=== PATIENT | female | born 1945 | race Caucasian/White ===

== ENCOUNTER → 2016-10-14 | Outpatient (REF) | payer MEDICARE, BC ==
[2016-10-14 15:24] LABS: ALBUMIN 3.9 GM/DL (3.2-5.2); ALBUMIN/GLOBULIN RATIO 1.18 (1.00-1.93); BILIRUBIN,TOTAL 0.9 MG/DL (0.2-1.0); CALCIUM LEVEL 9.2 MG/DL (8.8-10.2); CREATININE FOR GFR 1.27 MG/DL (0.55-1.02); GLOMERULAR FILTRATION RATE 43.9 (>39); POTASSIUM SERUM 3.8 MEQ/L (3.5-5.1); TOTAL PROTEIN 7.2 GM/DL (6.4-8.2)
== END ==
LOC: M SFHCLACO 08:43
PROVIDERS: ATTEND Physician Assistant
DX: I10 Essential (primary) hypertension (principal); E78.2 Mixed hyperlipidemia; E11.9 Type 2 diabetes mellitus without complications; E55.9 Vitamin D deficiency, unspecified

== ENCOUNTER → 2017-02-19 | Outpatient (REF) | payer MEDICARE, BC ==
[2017-02-19 15:51] LABS: ALBUMIN 3.9 GM/DL (3.2-5.2); ALBUMIN/GLOBULIN RATIO 1.15 (1.00-1.93); CALCIUM LEVEL 9.1 MG/DL (8.8-10.2); CREATININE FOR GFR 1.11 MG/DL (0.55-1.02); GLOMERULAR FILTRATION RATE 51.2 (>39); POTASSIUM SERUM 4.3 MEQ/L (3.5-5.1); TOTAL PROTEIN 7.3 GM/DL (6.4-8.2)
== END ==
LOC: M SFHCLACO 09:02
PROVIDERS: ATTEND Physician Assistant
DX: I10 Essential (primary) hypertension (principal); E78.2 Mixed hyperlipidemia; E11.9 Type 2 diabetes mellitus without complications; E55.9 Vitamin D deficiency, unspecified; J44.9 Chronic obstructive pulmonary disease, unspecified; R60.9 Edema, unspecified; Z68.43 Body mass index [BMI] 50.0-59.9, adult

== ENCOUNTER 2017-11-15 06:25 | Inpatient (IN) | payer MEDICARE, BC ==
[2017-11-15 07:22] LABS: VENOUS BASE EXCESS 2.1 (-2.0-2.0); VENOUS HCO3 27.7 MEQ/L (23.0-27.0); VENOUS O2 SATURATION 82.5 % (60.0-80.0); VENOUS PARTIAL PRESSURE CO2 47.2 mmHg (38.0-50.0); VENOUS PARTIAL PRESSURE O2 49.8 mmHg (30.0-50.0); VENOUS PH 7.387 UNITS (7.330-7.430); VENOUS TOTAL CO2 29.2 MEQ/L (24.0-28.0)
[2017-11-15 07:24] LABS: BASO % 0.5 % (0.0-1.0); EOS # 0.1 10^3/uL (0.0-0.50); EOS % 1.5 % (0.0-3.0); HEMATOCRIT 39.3 % (36.0-47.0); HEMOGLOBIN 12.5 g/dl (12.0-16.0); IMMATURE GRANULOCYTE % 0.4 % (0-3.0); LYMPH # 1.3 10^3/uL (1.5-4.5); LYMPH % 16.3 % (24.0-44.0); MEAN CORPUSCULAR HEMOGLOBIN 31.5 pg (27.0-33.0); MEAN CORPUSCULAR HGB CONC 31.8 g/dl (32.0-36.5); MONO # 0.5 10^3/uL (0.0-0.8); MONO % 6.4 % (0.0-5.0); NEUTROPHILS # 5.9 10^3/uL (1.8-7.7); NEUTROPHILS % 74.9 % (36.0-66.0); PLATELET COUNT, AUTOMATED 263 10^3/uL (150-450); RED BLOOD COUNT 3.97 10^6/uL (4.00-5.40); RED CELL DISTRIBUTION WIDTH 14.8 % (11.5-14.5); WHITE BLOOD COUNT 7.9 10^3/uL (4.0-10.0)
[2017-11-15 07:37] LABS: INR 0.97
[2017-11-15] MEDS: methylPREDNISolone INJ 125 MG/2 ML VIAL (J2930) IV (07:37)
[2017-11-15 07:40] LABS: NT-PRO BNP 1162 PG/ML (<125)
[2017-11-15] MEDS: IPRATROPIUM 0.5MG/ALBUTEROL 2.5MG INH SOL UD 3ML (DUONEB)(J7620) NEB (07:40)
[2017-11-15 07:41] LABS: ANION GAP 7 MEQ/L (8-16); BLOOD UREA NITROGEN 16 MG/DL (7-18); CALCIUM LEVEL 8.7 MG/DL (8.8-10.2); CARBON DIOXIDE LEVEL 31 MEQ/L (21-32); CHLORIDE LEVEL 104 MEQ/L (98-107); CK-MB VALUE MASS < 1.0 NG/ML (<3.6); CPK CREATINE PHOSPHOKINASE 42 U/L (26-192); CREATININE FOR GFR 0.88 MG/DL (0.55-1.30); GLOMERULAR FILTRATION RATE > 60.0 (>39); GLUCOSE, FASTING 171 MG/DL (70-100); MB/CK RELATIVE INDEX 2.38 (< OR =4); POTASSIUM SERUM 4.5 MEQ/L (3.5-5.1); SODIUM LEVEL 142 MEQ/L (136-145); TROPONIN I < 0.02 NG/ML (< 0.10)
[2017-11-15] MEDS: ALBUTEROL SULFATE 2.5 MG/0.5 ML INH NEB SOLN INH (07:41)
[2017-11-15 07:46] LABS: ABG BASE EXCESS 2.6 (-2.0-2.0); ABG HCO3 26.9 MEQ/L (22.0-26.0); ABG O2 SATURATION 94.8 % (95.0-99.0); ABG PARTIAL PRESSURE CO2 40.5 mmHg (35.0-45.0); ABG PARTIAL PRESSURE O2 75.5 mmHg (75.0-100.0); ABG STANDARD HCO3 26.7 MEQ/L (22.0-26.0); ABG TOTAL CO2 28.1 MEQ/L (23.0-31.0)
[2017-11-15] MEDS ORDERED: GLUCAGON FOR INJ 1 MG VIAL (J1610) SC (08:15)
[2017-11-15] MEDS ORDERED: DEXTROSE 50% 50 ML SYRINGE IV (08:15)
[2017-11-15] MEDS ORDERED: ONDANSETRON 4MG/2ML VIAL (J2405) IV (08:15)
[2017-11-15] MEDS ORDERED: ONDANSETRON 4 MG TAB (S0181) PO (08:15)
[2017-11-15] MEDS ORDERED: GLUCOSE 4 GM CHEW TABLET PO (08:15)
[2017-11-15] MEDS: FUROSEMIDE 40 MG/4 ML VIAL (J1940) IV (08:16)
[2017-11-15 08:20] LABS: INFLUENZA A AMPLIFICATION NEGATIVE (NEGATIVE); INFLUENZA B AMPLIFICATION NEGATIVE (NEGATIVE)
[2017-11-15] MEDS: HumaLOG INSULIN (NovoLOG) PER UNIT SC ×5 (08:40→20:34)
[2017-11-15] MEDS ORDERED: INFLUENZA VIRUS VACCINE HIGH DOSE 0.5 ML SYRINGE (90662) IM ×2 (09:00→15:00)
[2017-11-15] MEDS: NYSTATIN 100,000 UNITS/GM TOPICAL PWD 15 GM TOP ×2 (09:00→20:31)
[2017-11-15] MEDS: DOCUSATE SODIUM 100 MG CAP PO ×2 (09:06→20:34)
[2017-11-15] MEDS: ENOXAPARIN 40 MG/0.4 ML SYRINGE (J1650) SC (09:06)
[2017-11-15 09:16] LABS: BEDSIDE GLUCOSE 144 MG/DL (83-110)
[2017-11-15 12:24] LABS: BEDSIDE GLUCOSE 178 MG/DL (83-110)
[2017-11-15 12:44] LABS: CK-MB VALUE MASS < 1.0 NG/ML (<3.6); CPK CREATINE PHOSPHOKINASE 37 U/L (26-192); TROPONIN I < 0.02 NG/ML (< 0.10)
[2017-11-15] MEDS ORDERED: PREVNAR 13 VACCINE SYRINGE (CPT CODE:90670) IM (15:00)
[2017-11-15] MEDS ORDERED: ALPRAZolam 0.25 MG TAB PO (16:15)
[2017-11-15] MEDS: ACETAMINOPHEN TAB 650MG DOSE (2X325MG) PO ×3 (16:18→21:02)
[2017-11-15] MEDS: FUROSEMIDE 100 MG/10 ML VIAL (J1940) IV (16:19)
[2017-11-15 17:30] LABS: BEDSIDE GLUCOSE 195 MG/DL (83-110)
[2017-11-15] MEDS: CitaloPRAM (CeleXA) 20 MG TAB PO (19:00)
[2017-11-15 20:12] LABS: BEDSIDE GLUCOSE 201 MG/DL (83-110)
[2017-11-15] MEDS: LATANOPROST 0.005% OPHTH SOLN 2.5 ML OU (20:31)
[2017-11-15] MEDS: MELOXICAM (MOBIC) 7.5 MG TAB PO (20:32)
[2017-11-15] MEDS: SIMVASTATIN 20 MG TAB PO (20:32)
[2017-11-15] MEDS: METOPROLOL TARTRATE 100 MG TAB PO (20:32)
[2017-11-15] MEDS: NIFEdipine 30 MG XL TAB PO (20:33)
[2017-11-15] MEDS: QUINAPRIL 20 MG TAB PO (20:34)
[2017-11-15 20:41] LABS: CPK CREATINE PHOSPHOKINASE 42 U/L (26-192); TROPONIN I < 0.02 NG/ML (< 0.10)
[2017-11-15 20:42] LABS: CK-MB VALUE MASS 1.1 NG/ML (<3.6); MB/CK RELATIVE INDEX 2.61 (< OR =4)
[2017-11-16 04:01] LABS: BASO % 0.1 % (0.0-1.0); HEMATOCRIT 34.9 % (36.0-47.0); IMMATURE GRANULOCYTE % 0.4 % (0-3.0); LYMPH # 1.7 10^3/uL (1.5-4.5); LYMPH % 23.1 % (24.0-44.0); MEAN CORPUSCULAR HEMOGLOBIN 30.1 pg (27.0-33.0); MEAN CORPUSCULAR HGB CONC 31.5 g/dl (32.0-36.5); MEAN CORPUSCULAR VOLUME 95.6 fl (80.0-96.0); MONO # 0.7 10^3/uL (0.0-0.8); MONO % 8.7 % (0.0-5.0); NEUTROPHILS # 5.1 10^3/uL (1.8-7.7); NEUTROPHILS % 67.7 % (36.0-66.0); PLATELET COUNT, AUTOMATED 254 10^3/uL (150-450); RED BLOOD COUNT 3.65 10^6/uL (4.00-5.40); RED CELL DISTRIBUTION WIDTH 14.4 % (11.5-14.5); WHITE BLOOD COUNT 7.5 10^3/uL (4.0-10.0)
[2017-11-16 04:24] LABS: ANION GAP 4 MEQ/L (8-16); BLOOD UREA NITROGEN 22 MG/DL (7-18); CALCIUM LEVEL 8.4 MG/DL (8.8-10.2); CARBON DIOXIDE LEVEL 34 MEQ/L (21-32); CHLORIDE LEVEL 103 MEQ/L (98-107); CK-MB VALUE MASS < 1.0 NG/ML (<3.6); CPK CREATINE PHOSPHOKINASE 27 U/L (26-192); CREATININE FOR GFR 0.93 MG/DL (0.55-1.30); GLOMERULAR FILTRATION RATE > 60.0 (>39); GLUCOSE, FASTING 128 MG/DL (70-100); MAGNESIUM LEVEL 2.2 MG/DL (1.8-2.4); POTASSIUM SERUM 3.9 MEQ/L (3.5-5.1); SODIUM LEVEL 141 MEQ/L (136-145); TROPONIN I < 0.02 NG/ML (< 0.10)
[2017-11-16] MEDS: QUINAPRIL 20 MG TAB PO ×2 (08:53→21:12)
[2017-11-16] MEDS: HumaLOG INSULIN (NovoLOG) PER UNIT SC ×4 (08:53→21:00)
[2017-11-16] MEDS: CitaloPRAM (CeleXA) 20 MG TAB PO (08:53)
[2017-11-16] MEDS: METOPROLOL TARTRATE 100 MG TAB PO ×2 (08:54→21:12)
[2017-11-16] MEDS: ENOXAPARIN 40 MG/0.4 ML SYRINGE (J1650) SC (08:54)
[2017-11-16] MEDS: DOCUSATE SODIUM 100 MG CAP PO ×4 (08:54→21:00)
[2017-11-16] MEDS: CLOPIDOGREL 75 MG TAB PO (08:54)
[2017-11-16] MEDS: FUROSEMIDE 100 MG/10 ML VIAL (J1940) IV ×2 (08:55→17:24)
[2017-11-16] MEDS: NYSTATIN 100,000 UNITS/GM TOPICAL PWD 15 GM TOP ×2 (08:56→21:14)
[2017-11-16] MEDS: PREVNAR 13 VACCINE SYRINGE (CPT CODE:90670) IM (09:53)
[2017-11-16 12:09] LABS: BEDSIDE GLUCOSE 125 MG/DL (83-110)
[2017-11-16] MEDS: INFLUENZA VIRUS VACCINE HIGH DOSE 0.5 ML SYRINGE (90662) IM (12:33)
[2017-11-16 17:34] LABS: BEDSIDE GLUCOSE 130 MG/DL (83-110)
[2017-11-16 20:45] LABS: BEDSIDE GLUCOSE 119 MG/DL (83-110)
[2017-11-16] MEDS: SIMVASTATIN 20 MG TAB PO (21:12)
[2017-11-16] MEDS: LATANOPROST 0.005% OPHTH SOLN 2.5 ML OU (21:13)
[2017-11-16] MEDS: NIFEdipine 30 MG XL TAB PO (21:13)
[2017-11-16] MEDS: MELOXICAM (MOBIC) 7.5 MG TAB PO (21:13)
[2017-11-17 05:32] LABS: BASO # 0.1 10^3/uL (0.0-0.2); BASO % 0.6 % (0.0-1.0); EOS # 0.2 10^3/uL (0.0-0.50); EOS % 2.3 % (0.0-3.0); HEMATOCRIT 38.1 % (36.0-47.0); HEMOGLOBIN 12.2 g/dl (12.0-16.0); IMMATURE GRANULOCYTE % 0.4 % (0-3.0); LYMPH # 2.1 10^3/uL (1.5-4.5); LYMPH % 27.5 % (24.0-44.0); MEAN CORPUSCULAR HEMOGLOBIN 31.5 pg (27.0-33.0); MEAN CORPUSCULAR VOLUME 98.4 fl (80.0-96.0); MONO # 0.6 10^3/uL (0.0-0.8); MONO % 8.1 % (0.0-5.0); NEUTROPHILS # 4.7 10^3/uL (1.8-7.7); NEUTROPHILS % 61.1 % (36.0-66.0); PLATELET COUNT, AUTOMATED 319 10^3/uL (150-450); RED BLOOD COUNT 3.87 10^6/uL (4.00-5.40); RED CELL DISTRIBUTION WIDTH 14.7 % (11.5-14.5); WHITE BLOOD COUNT 7.8 10^3/uL (4.0-10.0)
[2017-11-17 05:56] LABS: ANION GAP 7 MEQ/L (8-16); BLOOD UREA NITROGEN 28 MG/DL (7-18); CALCIUM LEVEL 8.6 MG/DL (8.8-10.2); CARBON DIOXIDE LEVEL 32 MEQ/L (21-32); CHLORIDE LEVEL 102 MEQ/L (98-107); CREATININE FOR GFR 1.04 MG/DL (0.55-1.30); GLOMERULAR FILTRATION RATE 55.1 (>39); GLUCOSE, FASTING 115 MG/DL (70-100); MAGNESIUM LEVEL 2.4 MG/DL (1.8-2.4); POTASSIUM SERUM 3.7 MEQ/L (3.5-5.1); SODIUM LEVEL 141 MEQ/L (136-145)
[2017-11-17] MEDS: CitaloPRAM (CeleXA) 20 MG TAB PO (08:44)
[2017-11-17] MEDS: QUINAPRIL 20 MG TAB PO ×2 (08:45→20:48)
[2017-11-17] MEDS: METOPROLOL TART 25 MG TABLET PO ×2 (08:45→20:47)
[2017-11-17] MEDS: FUROSEMIDE 100 MG/10 ML VIAL (J1940) IV ×2 (08:46→18:04)
[2017-11-17] MEDS: DOCUSATE SODIUM 100 MG CAP PO ×2 (08:46→20:50)
[2017-11-17] MEDS: CLOPIDOGREL 75 MG TAB PO (08:46)
[2017-11-17] MEDS: HumaLOG INSULIN (NovoLOG) PER UNIT SC ×4 (08:47→20:49)
[2017-11-17] MEDS: ENOXAPARIN 40 MG/0.4 ML SYRINGE (J1650) SC (08:47)
[2017-11-17] MEDS: NYSTATIN 100,000 UNITS/GM TOPICAL PWD 15 GM TOP ×2 (08:48→20:48)
[2017-11-17 11:38] LABS: BEDSIDE GLUCOSE 127 MG/DL (83-110)
[2017-11-17] MEDS: NIFEdipine 30 MG XL TAB PO (20:47)
[2017-11-17] MEDS: MELOXICAM (MOBIC) 7.5 MG TAB PO (20:48)
[2017-11-17] MEDS: LATANOPROST 0.005% OPHTH SOLN 2.5 ML OU (20:48)
[2017-11-17] MEDS: SIMVASTATIN 20 MG TAB PO (20:48)
[2017-11-18 06:25] LABS: BASO % 0.4 % (0.0-1.0); EOS # 0.1 10^3/uL (0.0-0.50); EOS % 2.5 % (0.0-3.0); HEMOGLOBIN 10.8 g/dl (12.0-16.0); IMMATURE GRANULOCYTE % 0.4 % (0-3.0); LYMPH # 1.7 10^3/uL (1.5-4.5); LYMPH % 30.9 % (24.0-44.0); MEAN CORPUSCULAR HEMOGLOBIN 31.1 pg (27.0-33.0); MEAN CORPUSCULAR HGB CONC 31.8 g/dl (32.0-36.5); MONO # 0.5 10^3/uL (0.0-0.8); MONO % 9.8 % (0.0-5.0); NEUTROPHILS # 3.1 10^3/uL (1.8-7.7); PLATELET COUNT, AUTOMATED 251 10^3/uL (150-450); RED BLOOD COUNT 3.47 10^6/uL (4.00-5.40); RED CELL DISTRIBUTION WIDTH 14.6 % (11.5-14.5); WHITE BLOOD COUNT 5.5 10^3/uL (4.0-10.0)
[2017-11-18 06:44] LABS: ANION GAP 5 MEQ/L (8-16); BLOOD UREA NITROGEN 26 MG/DL (7-18); CALCIUM LEVEL 8.3 MG/DL (8.8-10.2); CARBON DIOXIDE LEVEL 35 MEQ/L (21-32); CHLORIDE LEVEL 104 MEQ/L (98-107); CREATININE FOR GFR 0.89 MG/DL (0.55-1.30); GLOMERULAR FILTRATION RATE > 60.0 (>39); GLUCOSE, FASTING 118 MG/DL (70-100); MAGNESIUM LEVEL 2.5 MG/DL (1.8-2.4); POTASSIUM SERUM 3.6 MEQ/L (3.5-5.1); SODIUM LEVEL 144 MEQ/L (136-145)
[2017-11-18] MEDS: HumaLOG INSULIN (NovoLOG) PER UNIT SC ×4 (08:05→21:00)
[2017-11-18] MEDS: DOCUSATE SODIUM 100 MG CAP PO ×2 (09:00→21:39)
[2017-11-18 11:29] LABS: BEDSIDE GLUCOSE 161 MG/DL (83-110)
[2017-11-18 11:29] LABS: BEDSIDE GLUCOSE 103 MG/DL (83-110)
[2017-11-18] MEDS: ENOXAPARIN 40 MG/0.4 ML SYRINGE (J1650) SC (11:39)
[2017-11-18] MEDS: QUINAPRIL 20 MG TAB PO ×2 (11:39→21:38)
[2017-11-18] MEDS: CitaloPRAM (CeleXA) 20 MG TAB PO (11:40)
[2017-11-18] MEDS: CLOPIDOGREL 75 MG TAB PO (11:40)
[2017-11-18] MEDS: METOPROLOL TART 25 MG TABLET PO ×2 (11:40→21:37)
[2017-11-18] MEDS: NYSTATIN 100,000 UNITS/GM TOPICAL PWD 15 GM TOP ×2 (11:41→21:38)
[2017-11-18] MEDS: FUROSEMIDE 100 MG/10 ML VIAL (J1940) IV ×2 (11:41→17:22)
[2017-11-18] MEDS: NIFEdipine 30 MG XL TAB PO (21:37)
[2017-11-18] MEDS: SIMVASTATIN 20 MG TAB PO (21:37)
[2017-11-18] MEDS: MELOXICAM (MOBIC) 7.5 MG TAB PO (21:38)
[2017-11-18] MEDS: LATANOPROST 0.005% OPHTH SOLN 2.5 ML OU (21:38)
[2017-11-19] MEDS: CLOPIDOGREL 75 MG TAB PO (08:12)
[2017-11-19] MEDS: QUINAPRIL 20 MG TAB PO ×2 (08:12→21:35)
[2017-11-19] MEDS: CitaloPRAM (CeleXA) 20 MG TAB PO (08:12)
[2017-11-19] MEDS: METOPROLOL TART 25 MG TABLET PO ×2 (08:13→21:34)
[2017-11-19] MEDS: FUROSEMIDE 80 MG TAB PO (08:13)
[2017-11-19] MEDS: DOCUSATE SODIUM 100 MG CAP PO ×2 (08:14→21:00)
[2017-11-19] MEDS: HumaLOG INSULIN (NovoLOG) PER UNIT SC ×4 (08:14→21:00)
[2017-11-19] MEDS: ENOXAPARIN 40 MG/0.4 ML SYRINGE (J1650) SC (08:15)
[2017-11-19] MEDS: NYSTATIN 100,000 UNITS/GM TOPICAL PWD 15 GM TOP ×2 (08:15→21:35)
[2017-11-19 10:19] LABS: BASO % 0.3 % (0.0-1.0); EOS # 0.1 10^3/uL (0.0-0.50); EOS % 1.8 % (0.0-3.0); HEMATOCRIT 38.6 % (36.0-47.0); HEMOGLOBIN 12.4 g/dl (12.0-16.0); IMMATURE GRANULOCYTE % 0.3 % (0-3.0); LYMPH # 1.8 10^3/uL (1.5-4.5); LYMPH % 29.8 % (24.0-44.0); MEAN CORPUSCULAR HEMOGLOBIN 31.1 pg (27.0-33.0); MEAN CORPUSCULAR HGB CONC 32.1 g/dl (32.0-36.5); MEAN CORPUSCULAR VOLUME 96.7 fl (80.0-96.0); MONO # 0.5 10^3/uL (0.0-0.8); MONO % 8.2 % (0.0-5.0); NEUTROPHILS # 3.6 10^3/uL (1.8-7.7); NEUTROPHILS % 59.6 % (36.0-66.0); PLATELET COUNT, AUTOMATED 254 10^3/uL (150-450); RED BLOOD COUNT 3.99 10^6/uL (4.00-5.40); RED CELL DISTRIBUTION WIDTH 14.5 % (11.5-14.5)
[2017-11-19 10:40] LABS: POS COUNT POS FLAG
[2017-11-19 12:11] LABS: ANION GAP 5 MEQ/L (8-16); BLOOD UREA NITROGEN 24 MG/DL (7-18); CALCIUM LEVEL 8.4 MG/DL (8.8-10.2); CARBON DIOXIDE LEVEL 33 MEQ/L (21-32); CHLORIDE LEVEL 105 MEQ/L (98-107); CREATININE FOR GFR 0.88 MG/DL (0.55-1.30); GLOMERULAR FILTRATION RATE > 60.0 (>39); GLUCOSE, FASTING 142 MG/DL (70-100); MAGNESIUM LEVEL 2.5 MG/DL (1.8-2.4); POTASSIUM SERUM 3.5 MEQ/L (3.5-5.1); SODIUM LEVEL 143 MEQ/L (136-145)
[2017-11-19] MEDS: ACETAMINOPHEN TAB 650MG DOSE (2X325MG) PO (15:54)
[2017-11-19] MEDS: MELOXICAM (MOBIC) 7.5 MG TAB PO (21:35)
[2017-11-19] MEDS: LATANOPROST 0.005% OPHTH SOLN 2.5 ML OU (21:35)
[2017-11-19] MEDS: SIMVASTATIN 20 MG TAB PO (21:35)
[2017-11-19] MEDS: NIFEdipine 30 MG XL TAB PO (21:42)
[2017-11-20 07:01] LABS: BASO % 0.6 % (0.0-1.0); EOS # 0.1 10^3/uL (0.0-0.50); HEMATOCRIT 34.6 % (36.0-47.0); HEMOGLOBIN 11.2 g/dl (12.0-15.5); IMMATURE GRANULOCYTE % 0.4 % (0-3.0); LYMPH # 1.6 10^3/uL (1.5-4.5); MEAN CORPUSCULAR HEMOGLOBIN 31.2 pg (27.0-33.0); MEAN CORPUSCULAR HGB CONC 32.4 g/dl (32.0-36.5); MEAN CORPUSCULAR VOLUME 96.4 fl (80.0-96.0); MONO # 0.5 10^3/uL (0.0-0.8); MONO % 9.4 % (0.0-5.0); NEUTROPHILS # 2.8 10^3/uL (1.8-7.7); NEUTROPHILS % 55.6 % (36.0-66.0); PLATELET COUNT, AUTOMATED 249 10^3/uL (150-450); RED BLOOD COUNT 3.59 10^6/uL (4.00-5.40); RED CELL DISTRIBUTION WIDTH 14.4 % (11.5-14.5); WHITE BLOOD COUNT 5.1 10^3/uL (4.0-10.0)
[2017-11-20 07:19] LABS: ANION GAP 6 MEQ/L (8-16); BLOOD UREA NITROGEN 22 MG/DL (7-18); CALCIUM LEVEL 8.5 MG/DL (8.8-10.2); CARBON DIOXIDE LEVEL 32 MEQ/L (21-32); CHLORIDE LEVEL 106 MEQ/L (98-107); CREATININE FOR GFR 0.81 MG/DL (0.55-1.30); GLOMERULAR FILTRATION RATE > 60.0 (>39); GLUCOSE, FASTING 122 MG/DL (70-100); MAGNESIUM LEVEL 2.5 MG/DL (1.8-2.4); POTASSIUM SERUM 3.5 MEQ/L (3.5-5.1); SODIUM LEVEL 144 MEQ/L (136-145)
[2017-11-20] MEDS: ENOXAPARIN 40 MG/0.4 ML SYRINGE (J1650) SC (08:19)
[2017-11-20] MEDS: QUINAPRIL 20 MG TAB PO (08:19)
[2017-11-20] MEDS: HumaLOG INSULIN (NovoLOG) PER UNIT SC ×2 (08:19→12:00)
[2017-11-20] MEDS: CitaloPRAM (CeleXA) 20 MG TAB PO (08:20)
[2017-11-20] MEDS: FUROSEMIDE 80 MG TAB PO (08:20)
[2017-11-20] MEDS: METOPROLOL TART 25 MG TABLET PO (08:20)
[2017-11-20] MEDS: CLOPIDOGREL 75 MG TAB PO (08:20)
[2017-11-20] MEDS: NYSTATIN 100,000 UNITS/GM TOPICAL PWD 15 GM TOP (08:21)
[2017-11-20] MEDS: DOCUSATE SODIUM 100 MG CAP PO (08:21)
[2017-11-20 22:00] LABS: BEDSIDE GLUCOSE 110 MG/DL (83-110)
[2017-11-20 22:00] LABS: BEDSIDE GLUCOSE 129 MG/DL (83-110)
[2017-11-20 22:00] LABS: BEDSIDE GLUCOSE 148 MG/DL (83-110)
[2017-11-20 22:00] LABS: BEDSIDE GLUCOSE 125 MG/DL (83-110)
[2017-11-20 22:01] LABS: BEDSIDE GLUCOSE 130 MG/DL (83-110)
[2017-11-20 22:01] LABS: BEDSIDE GLUCOSE 134 MG/DL (83-110)
[2017-11-20 22:01] LABS: BEDSIDE GLUCOSE 122 MG/DL (83-110)
== END 2017-11-20 12:55 | disposition home or self-care (01) | DRG 292 ==
LOC: M MS5PR 11-17 16:17 → M ED 06:25 → M ED INP 08:07 → M ICU 09:46 → M PCU 23:12
DX: I11.0 Hypertensive heart disease with heart failure (principal); Z68.42 Body mass index [BMI] 45.0-49.9, adult; I50.33 Acute on chronic diastolic (congestive) heart failure; E66.01 Morbid (severe) obesity due to excess calories; Z66 Do not resuscitate; E78.5 Hyperlipidemia, unspecified; R19.7 Diarrhea, unspecified; E11.9 Type 2 diabetes mellitus without complications; F32.9 Major depressive disorder, single episode, unspecified; F41.9 Anxiety disorder, unspecified; Z79.899 Other long term (current) drug therapy; Z79.82 Long term (current) use of aspirin; Z88.6 Allergy status to analgesic agent; Z88.0 Allergy status to penicillin; Z88.1 Allergy status to other antibiotic agents; K57.30 Diverticulosis of large intestine without perforation or abscess without bleeding; Z87.891 Personal history of nicotine dependence

== ENCOUNTER → 2018-02-09 | Outpatient (REF) | payer MEDICARE, BC ==
[2018-02-09 15:14] LABS: TOTAL 25(OH) VITAMIN D 34.1 NG/ML (30.0-100.0)
[2018-02-09 16:05] LABS: ALBUMIN 4.1 GM/DL (3.2-5.2); ALBUMIN/GLOBULIN RATIO 1.11 (1.00-1.93); ALKALINE PHOSPHATASE 97 U/L (45-117); ALT/SGPT 22 U/L (12-78); ANION GAP 15 MEQ/L (8-16); AST/SGOT 9 U/L (7-37); BILIRUBIN,TOTAL 0.9 MG/DL (0.2-1.0); BLOOD UREA NITROGEN 31 MG/DL (7-18); CALCIUM LEVEL 9.3 MG/DL (8.8-10.2); CARBON DIOXIDE LEVEL 22 MEQ/L (21-32); CHLORIDE LEVEL 102 MEQ/L (98-107); CHOLESTEROL LEVEL 147 MG/DL (<200); CHOLESTEROL RISK RATIO 2.722 (<5); CREATININE FOR GFR 1.29 MG/DL (0.55-1.30); GLOMERULAR FILTRATION RATE 42.9 (>39); GLUCOSE, FASTING 149 MG/DL (70-100); HDL CHOLESTEROL 54 MG/DL (>40); LDL CHOLESTEROL 24.4 MG/DL (<100); NON-HDL-C 93 MG/DL; POTASSIUM SERUM 4.5 MEQ/L (3.5-5.1); SODIUM LEVEL 139 MEQ/L (136-145); TOTAL PROTEIN 7.8 GM/DL (6.4-8.2); TRIGLYCERIDES LEVEL 343 MG/DL (<150)
[2018-02-09 19:03] LABS: ESTIMATED AVERAGE GLUCOSE 126 MG/DL (60-110)
== END ==
LOC: M SFHCLACO 08:51
DX: E78.2 Mixed hyperlipidemia (principal); E11.9 Type 2 diabetes mellitus without complications; I10 Essential (primary) hypertension; E55.9 Vitamin D deficiency, unspecified
CPT/HCPCS: 80053

== ENCOUNTER → 2019-05-09 | Outpatient (REF) | payer MEDICARE, BC ==
[~2019-05-09] MED LIST: ACET1TAB55 PO; CELE20TA PO; CLOP75TA2 PO; FURO80TA2 PO; LOVA20TA2 PO; MELO15TA28 PO; METF500T13 PO; METO100T5 PO; METO1TAB87 PO; NIFE90TA3 PO; QUIN1TAB4 PO; TRAV04OPD OU; VITA50005 PO; XANA0.25 PO
[2019-05-09 19:12] LABS: PERCENT SATURATION 23.7 % (13.2-45.0)
== END ==
LOC: M LAB REF 18:23
PROVIDERS: ATTEND Internal Medicine Nephrology
DX: D64.9 Anemia, unspecified (principal)

== ENCOUNTER → 2019-05-20 | Outpatient (CLI) | payer MEDICARE, BC ==
--- NOTE | 2019-05-20 13:48 | REP ---
RENAL ULTRASOUND: Real-time sonographic evaluation of the kidneys performed. Kidneys are normal in size and echotexture, right kidney measuring 9.6 x 4.9 x 4.0 cm and left kidney 9.7 x 5.8 x 5.6 cm. There is no hydronephrosis bilaterally. No renal mass or stone visualized. IMPRESSION: Negative renal ultrasound. Electronically Signed by Leonel Fitch MD 05/20/2019 04:58 P
--- NOTE | 2019-05-20 13:50 | REP ---
URINARY BLADDER WITH ULTRASOUND: Real-time sonographic evaluation of the urinary bladder performed. The bladder measures 8.4 x 8.8 x 7.9 cm for a total volume of 31 mL. Post-void residual is 33 mL which is 9% of the original volume. No bladder mass or calculus is seen. There are bilateral ureteral jets in the urinary bladder with Doppler color evaluation. IMPRESSION: No bladder mass or calculus. Bilateral ureteral jets visualized. Postvoid residual 9%. Electronically Signed by Leonel Fitch MD 05/20/2019 04:58 P
== END ==
LOC: M RAD 11:24
PROVIDERS: ATTEND Internal Medicine Nephrology
DX: I12.9 Hypertensive chronic kidney disease with stage 1 through stage 4 chronic kidney disease, or unspecified chronic kidney disease (principal); N18.3 Chronic kidney disease, stage 3 (moderate); E11.9 Type 2 diabetes mellitus without complications

== ENCOUNTER → 2021-04-23 | Outpatient (REF) | payer MEDICARE, BC ==
[~2021-04-23] MED LIST changes: +NIFE1TAB50 PO; -NIFE90TA3 PO
[2021-04-23 17:45] LABS: MAGNESIUM LEVEL 1.7 MG/DL (1.8-2.4)
[2021-04-23 18:01] LABS: FOLATE 4.8 NG/ML
== END ==
LOC: M LAB REF 17:10
PROVIDERS: ATTEND Nurse Practitioner Family
DX: D64.9 Anemia, unspecified (principal); E83.42 Hypomagnesemia

== ENCOUNTER 2021-09-08 16:28 | Inpatient (IN) | payer MEDICARE, BC ==
[~2021-09-08] VITALS: Ht 154.9 cm; Wt 83.5 kg
[2021-09-08] MEDS ORDERED: LORazepam 2 MG/ML VIAL IV STA ×3 (17:09→18:09)
[2021-09-08 17:13] LABS: BASO % 0.2 % (0.0-1.0); HEMATOCRIT 39.3 % (36.0-47.0); HEMOGLOBIN 12.6 g/dl (12.0-15.5); LYMPH # 1.3 10^3/uL (1.5-5.0); LYMPH % 10.4 % (24.0-44.0); MEAN CORPUSCULAR HEMOGLOBIN 31.5 pg (27.0-33.0); MEAN CORPUSCULAR HGB CONC 32.1 g/dl (32.0-36.5); MEAN CORPUSCULAR VOLUME 98.3 fl (80.0-96.0); MONO # 0.7 10^3/uL (0.0-0.8); MONO % 5.3 % (2.0-8.0); NEUTROPHILS # 10.7 10^3/uL (1.5-8.5); NEUTROPHILS % 83.8 % (36.0-66.0); PLATELET COUNT, AUTOMATED 266 10^3/uL (150-450); WHITE BLOOD COUNT 12.8 10^3/uL (4.0-10.0)
[2021-09-08] MEDS ORDERED: ACETAMINOPHEN 650 MG SUPP PR ONE (17:20)
[2021-09-08] MEDS ORDERED: LORazepam 2 MG/ML VIAL As Ordered ONE ×3 (17:27→18:12)
[2021-09-08 17:47] LABS: ACETAMINOPHEN LEVEL < 2.0 UG/ML (10.0-30.0); ALBUMIN 3.3 GM/DL (3.2-5.2); ALT/SGPT 12 U/L (12-78); BILIRUBIN,DIRECT 0.2 MG/DL (0.0-0.2); BLOOD UREA NITROGEN 20 MG/DL (7-18); CALCIUM LEVEL 8.9 MG/DL (8.8-10.2); CARBON DIOXIDE LEVEL 33 MEQ/L (21-32); CHLORIDE LEVEL 104 MEQ/L (98-107); CREATININE FOR GFR 1.25 MG/DL (0.55-1.30); ETHYL ALCOHOL (ETHANOL) < 0.003 % (0.000-0.010); GLOMERULAR FILTRATION RATE 44.1 (>39); GLUCOSE, FASTING 155 MG/DL (70-100); POTASSIUM SERUM 3.4 MEQ/L (3.5-5.1); SALICYLATE LEVEL < 1.7 MG/DL (5.0-30.0); SODIUM LEVEL 144 MEQ/L (136-145); THYROID STIMULATING HORMONE 0.273 uIU/ML (0.358-3.740); TOTAL PROTEIN 6.8 GM/DL (6.4-8.2)
[2021-09-08 17:59] LABS: AMPHETAMINES LEVEL URINE NEGATIVE (NEGATIVE); BARBITURATES URINE NEGATIVE (NEGATIVE); BENZODIAZEPINES URINE POSITIVE (NEGATIVE); CANNABINOIDS URINE NEGATIVE (NEGATIVE); COCAINE METABOLITE URINE NEGATIVE (NEGATIVE); METHADONE URINE NEGATIVE (NEGATIVE); OPIATES URINE NEGATIVE (NEGATIVE); PHENCYCLIDINE URINE NEGATIVE (NEGATIVE)
[2021-09-08] MEDS ORDERED: LevoFLOXacin IV 750 MG in IV 1 EA IV ONE (18:35)
[2021-09-08 19:02] LABS: CK-MB VALUE MASS 1.7 NG/ML (<3.6); MB/CK RELATIVE INDEX 0.65 (< OR =4)
[2021-09-08] MEDS ORDERED: METO50TA7 PO (19:05)
[2021-09-08] MEDS ORDERED: DULO1CAP4 PO (19:05)
[2021-09-08] MEDS ORDERED: ERGO500029 PO (19:05)
[2021-09-08] MEDS ORDERED: HOME MED LIST COMPLETE! XX SCH (19:10)
[2021-09-08] MEDS ORDERED: ASPIRIN 300 MG SUPP PR ONE (19:45)
[2021-09-08] MEDS ORDERED: NS 1,000 ML IV ONE (19:45)
[2021-09-08] MEDS: ATORVASTATIN 20 MG TAB PO SCH (21:00)
[2021-09-08] MEDS ORDERED: MOM 30ML SUSPENSION UDC PO PRN (22:35)
[2021-09-08] MEDS ORDERED: ACETAMINOPHEN 650 MG SUPP PR PRN (22:35)
[2021-09-08] MEDS ORDERED: GLUCOSE 4GM CHEW TABLET PO PRN (23:05)
[2021-09-08] MEDS ORDERED: GLUCAGON INJ 1MG VIAL SC PRN (23:05)
[2021-09-08] MEDS ORDERED: DEXTROSE 50% 50 ML SYRINGE IV PRN (23:05)
[2021-09-09] MEDS ORDERED: VANCOMYCIN HCL 1,000 MG, VIAL MATE ADAPTER 1 EACH in NS 250 ML IV ONE ×3
[2021-09-09] MEDS: HumaLOG INSULIN (NovoLOG) PER UNIT SC SCH ×5 (00:07→23:09)
[2021-09-09] MEDS ORDERED: VANCOMYCIN HCL 500 MG in D5W MINI-BAG PLUS 100 ML IV ONE (01:00)
[2021-09-09] MEDS ORDERED: OLANZapine INTRAMUSCULAR 10MG VIAL IM ONE (02:00)
[2021-09-09 02:10] VITALS: BP 160/67
[2021-09-09] MEDS: NS 1,000 ML IV SCH ×2 (03:07→23:10)
[2021-09-09 04:00] VITALS: BP 110/53
[2021-09-09 05:52] LABS: HEMATOCRIT 34.1 % (36.0-47.0); HEMOGLOBIN 10.8 g/dl (12.0-15.5); MEAN CORPUSCULAR HEMOGLOBIN 31.9 pg (27.0-33.0); MEAN CORPUSCULAR HGB CONC 31.7 g/dl (32.0-36.5); MEAN CORPUSCULAR VOLUME 100.6 fl (80.0-96.0); PLATELET COUNT, AUTOMATED 211 10^3/uL (150-450); RED BLOOD COUNT 3.39 10^6/uL (4.00-5.40)
[2021-09-09] MEDS: HEPARIN SOD (PORCINE) 5000UNITS/ML 1ML VIAL/SYRINGE SC SCH ×3 (06:13→20:39)
[2021-09-09 06:32] LABS: ALBUMIN 2.6 GM/DL (3.2-5.2); BILIRUBIN,TOTAL 1.2 MG/DL (0.2-1.0); CALCIUM LEVEL 7.9 MG/DL (8.8-10.2); CREATININE FOR GFR 1.04 MG/DL (0.55-1.30); GLOMERULAR FILTRATION RATE 54.6 (>39); MAGNESIUM LEVEL 1.5 MG/DL (1.8-2.4); POTASSIUM SERUM 2.8 MEQ/L (3.5-5.1); TOTAL PROTEIN 5.6 GM/DL (6.4-8.2)
[2021-09-09] MEDS ORDERED: MAG SULF 1GM/100ML (MAG RUN) 1 GM in IV 1 EA IV ONE (07:00)
[2021-09-09 07:57] VITALS: BP 135/65
[2021-09-09] MEDS ORDERED: POTASSIUM CHLORIDE 10MEQ SR TABLET PO ONE (08:00)
[2021-09-09] MEDS: DOCUSATE SODIUM 100MG CAPSULE PO SCH ×2 (09:00→20:20)
[2021-09-09] MEDS: METOPROLOL TART 50 MG TAB PO SCH ×2 (09:00→20:21)
[2021-09-09] MEDS: CLOPIDOGREL 75 MG TAB PO SCH (09:00)
[2021-09-09] MEDS: KCL 10MEQ/100ML SWI (KRUN) 10 MEQ in IV 1 EA IV SCH ×4 (09:33→15:20)
[2021-09-09 12:53] VITALS: BP 128/60
[2021-09-09] MEDS ORDERED: KCL 10MEQ/100ML SWI (KRUN) 10 MEQ in IV 1 EA IV ONE (15:15)
[2021-09-09] MEDS: VANCOMYCIN HCL 1,000 MG, VIAL MATE ADAPTER 1 EACH in NS 250 ML IV SCH (16:34)
[2021-09-09 17:04] VITALS: BP 135/83
[2021-09-09 17:29] LABS: CALCIUM LEVEL 8.5 MG/DL (8.8-10.2); CREATININE FOR GFR 1.07 MG/DL (0.55-1.30); GLOMERULAR FILTRATION RATE 52.8 (>39); MAGNESIUM LEVEL 2.2 MG/DL (1.8-2.4); PHOSPHORUS LEVEL 2.4 MG/DL (2.5-4.9); POTASSIUM SERUM 3.8 MEQ/L (3.5-5.1)
[2021-09-09] MEDS ORDERED: K-PHOS ORIGINAL (POT.ACID PHOSPHATE) 500MG TAB PO ONE (18:05)
[2021-09-09 20:00] VITALS: BP 141/62
[2021-09-09] MEDS: ATORVASTATIN 20 MG TAB PO SCH (20:20)
[2021-09-09] MEDS ORDERED: VANCOMYCIN HCL 1,000 MG, VIAL MATE ADAPTER 1 EACH in NS 250 ML IV SCH (21:00)
[2021-09-10] VITALS (8 sets, daily range): BP systolic 113–153; BP diastolic 53–67
[2021-09-10 05:07] LABS: BASO % 0.5 % (0.0-1.0); EOS # 0.3 10^3/uL (0.0-0.5); EOS % 3.8 % (0.0-3.0); HEMATOCRIT 33.8 % (36.0-47.0); HEMOGLOBIN 10.6 g/dl (12.0-15.5); LYMPH # 1.8 10^3/uL (1.5-5.0); LYMPH % 27.6 % (24.0-44.0); MEAN CORPUSCULAR HEMOGLOBIN 31.5 pg (27.0-33.0); MEAN CORPUSCULAR HGB CONC 31.4 g/dl (32.0-36.5); MEAN CORPUSCULAR VOLUME 100.6 fl (80.0-96.0); MONO # 0.5 10^3/uL (0.0-0.8); MONO % 6.8 % (2.0-8.0); PLATELET COUNT, AUTOMATED 179 10^3/uL (150-450); RED BLOOD COUNT 3.36 10^6/uL (4.00-5.40); WHITE BLOOD COUNT 6.6 10^3/uL (4.0-10.0)
[2021-09-10] MEDS: HumaLOG INSULIN (NovoLOG) PER UNIT SC SCH ×4 (05:19→20:38)
[2021-09-10] MEDS: HEPARIN SOD (PORCINE) 5000UNITS/ML 1ML VIAL/SYRINGE SC SCH ×3 (05:32→20:42)
[2021-09-10 05:37] LABS: ALBUMIN 2.5 GM/DL (3.2-5.2); BILIRUBIN,TOTAL 0.9 MG/DL (0.2-1.0); CALCIUM LEVEL 8.1 MG/DL (8.8-10.2); CREATININE FOR GFR 1.01 MG/DL (0.55-1.30); GLOMERULAR FILTRATION RATE 56.4 (>39); PHOSPHORUS LEVEL 2.8 MG/DL (2.5-4.9); POTASSIUM SERUM 3.1 MEQ/L (3.5-5.1); TOTAL PROTEIN 5.6 GM/DL (6.4-8.2)
[2021-09-10] MEDS: DOCUSATE SODIUM 100MG CAPSULE PO SCH ×2 (09:18→20:42)
[2021-09-10] MEDS: CLOPIDOGREL 75 MG TAB PO SCH (09:19)
[2021-09-10] MEDS: METOPROLOL TART 50 MG TAB PO SCH ×2 (09:19→20:43)
[2021-09-10] MEDS ORDERED: POTASSIUM CHLORIDE 10MEQ SR TABLET PO ONE (10:30)
[2021-09-10] MEDS: VANCOMYCIN HCL 1,000 MG, VIAL MATE ADAPTER 1 EACH in NS 250 ML IV SCH (14:59)
[2021-09-10 16:08] LABS: MYCOPLASMA PNEUMONIAE IgG 461 U/mL (0-99); MYCOPLASMA PNEUMONIAE IgM <770 U/mL (0-769)
[2021-09-10] MEDS ORDERED: LevoFLOXacin IV 750 MG in IV 1 EA IV SCH (18:00)
[2021-09-10] MEDS: ATORVASTATIN 20 MG TAB PO SCH (20:43)
[2021-09-10] MEDS ORDERED: OLANZapine INTRAMUSCULAR 10MG VIAL IM ONE (22:05)
[2021-09-10] MEDS ORDERED: KETOROLAC 30 MG/ML 1ML VIAL IV ONE (23:30)
[2021-09-10] MEDS ORDERED: LORazepam 2 MG/ML VIAL IV ONE (23:30)
[2021-09-11 04:00] VITALS: BP 152/62
[2021-09-11] MEDS: HEPARIN SOD (PORCINE) 5000UNITS/ML 1ML VIAL/SYRINGE SC SCH ×3 (05:32→21:46)
[2021-09-11] MEDS: HumaLOG INSULIN (NovoLOG) PER UNIT SC SCH ×4 (07:30→20:43)
[2021-09-11 08:00] VITALS: BP 182/84
[2021-09-11] MEDS ORDERED: OLANZapine INTRAMUSCULAR 10MG VIAL IM ONE ×2 (08:00→08:30)
[2021-09-11] MEDS ORDERED: HALOPERIDOL 5MG/ML VIAL (J1630 PER 1) IM PRN (09:55)
[2021-09-11] MEDS ORDERED: HALOPERIDOL 5MG/ML VIAL (J1630 PER 1) IV ONE (09:55)
[2021-09-11] MEDS ORDERED: diphenhydrAMINE 50MG/ML VIAL (J1200) IV PRN (11:15)
[2021-09-11 12:00] VITALS: BP 131/66
[2021-09-11] MEDS ORDERED: POTASSIUM CHLORIDE 10MEQ SR TABLET PO ONE (13:00)
[2021-09-11] MEDS ORDERED: lisinopriL 40 MG TAB PO ONE (13:00)
[2021-09-11] MEDS: DOCUSATE SODIUM 100MG CAPSULE PO SCH ×2 (15:12→20:42)
[2021-09-11] MEDS: CEFDINIR 300 MG CAP (OMNICEF) PO SCH ×2 (15:13→20:43)
[2021-09-11] MEDS: METOPROLOL TART 50 MG TAB PO SCH ×2 (15:13→20:43)
[2021-09-11] MEDS: CLOPIDOGREL 75 MG TAB PO SCH (17:59)
[2021-09-11] MEDS: ACETAMINOPHEN TAB 650MG DOSE (2X325MG) PO PRN (18:00)
[2021-09-11 19:06] VITALS: BP 130/65
[2021-09-11] MEDS: ATORVASTATIN 20 MG TAB PO SCH (20:44)
[2021-09-11] MEDS ORDERED: OLANZapine ORAL DISINTEGRATING TAB 5MG PO SCH (21:00)
[2021-09-12 04:00] VITALS: BP 141/73
[2021-09-12] MEDS: HEPARIN SOD (PORCINE) 5000UNITS/ML 1ML VIAL/SYRINGE SC SCH ×3 (05:08→21:44)
[2021-09-12 05:34] LABS: HEMATOCRIT 34.5 % (36.0-47.0); HEMOGLOBIN 10.8 g/dl (12.0-15.5); MEAN CORPUSCULAR HEMOGLOBIN 31.9 pg (27.0-33.0); MEAN CORPUSCULAR HGB CONC 31.3 g/dl (32.0-36.5); MEAN CORPUSCULAR VOLUME 101.8 fl (80.0-96.0); PLATELET COUNT, AUTOMATED 213 10^3/uL (150-450); RED BLOOD COUNT 3.39 10^6/uL (4.00-5.40); WHITE BLOOD COUNT 5.9 10^3/uL (4.0-10.0)
[2021-09-12 05:50] LABS: CALCIUM LEVEL 8.2 MG/DL (8.8-10.2); CREATININE FOR GFR 1.1 MG/DL (0.55-1.30); GLOMERULAR FILTRATION RATE 51.1 (>39); MAGNESIUM LEVEL 1.8 MG/DL (1.8-2.4); PHOSPHORUS LEVEL 2.8 MG/DL (2.5-4.9); POTASSIUM SERUM 4.6 MEQ/L (3.5-5.1)
[2021-09-12] MEDS: HumaLOG INSULIN (NovoLOG) PER UNIT SC SCH ×4 (07:11→20:40)
[2021-09-12 07:34] VITALS: BP 134/75
[2021-09-12] MEDS: CLOPIDOGREL 75 MG TAB PO SCH (08:53)
[2021-09-12] MEDS: CEFDINIR 300 MG CAP (OMNICEF) PO SCH (08:54)
[2021-09-12] MEDS: DOCUSATE SODIUM 100MG CAPSULE PO SCH ×2 (08:54→19:59)
[2021-09-12] MEDS: METOPROLOL TART 50 MG TAB PO SCH ×2 (08:54→20:02)
[2021-09-12] MEDS ORDERED: lisinopriL 40 MG TAB PO SCH (09:00)
[2021-09-12 12:03] VITALS: BP 149/65
[2021-09-12] MEDS: LevoFLOXacin 750 MG TABLET PO SCH (17:32)
[2021-09-12 19:57] VITALS: BP 158/96
[2021-09-12] MEDS: ATORVASTATIN 20 MG TAB PO SCH (19:59)
[2021-09-12] MEDS ORDERED: OLANZapine ORAL DISINTEGRATING TAB 5MG PO SCH (21:00)
[2021-09-12] MEDS ORDERED: DOXYCYCLINE HYCLATE 100MG TABLET PO SCH (21:00)
[2021-09-12] MEDS ORDERED: HALOPERIDOL 5MG/ML VIAL (J1630 PER 1) IM ONE (21:30)
[2021-09-12] MEDS ORDERED: OLANZapine INTRAMUSCULAR 10MG VIAL IM ONE (22:55)
[2021-09-13] MEDS ORDERED: LORazepam 2 MG/ML VIAL IV ONE (01:00)
[2021-09-13 04:00] VITALS: BP 130/80
[2021-09-13 05:43] LABS: HEMATOCRIT 36.2 % (36.0-47.0); HEMOGLOBIN 11.6 g/dl (12.0-15.5); MEAN CORPUSCULAR VOLUME 99.7 fl (80.0-96.0); PLATELET COUNT, AUTOMATED 223 10^3/uL (150-450); RED BLOOD COUNT 3.63 10^6/uL (4.00-5.40); WHITE BLOOD COUNT 7.5 10^3/uL (4.0-10.0)
[2021-09-13] MEDS: HEPARIN SOD (PORCINE) 5000UNITS/ML 1ML VIAL/SYRINGE SC SCH ×3 (06:00→20:51)
[2021-09-13 06:29] LABS: CALCIUM LEVEL 8.6 MG/DL (8.8-10.2); CREATININE FOR GFR 1.1 MG/DL (0.55-1.30); GLOMERULAR FILTRATION RATE 51.1 (>39); MAGNESIUM LEVEL 1.8 MG/DL (1.8-2.4); PHOSPHORUS LEVEL 3.2 MG/DL (2.5-4.9); POTASSIUM SERUM 5.1 MEQ/L (3.5-5.1)
[2021-09-13] MEDS: HumaLOG INSULIN (NovoLOG) PER UNIT SC SCH ×4 (07:30→20:50)
[2021-09-13 11:39] VITALS: BP 158/60
[2021-09-13] MEDS: CLOPIDOGREL 75 MG TAB PO SCH (11:41)
[2021-09-13] MEDS: DOCUSATE SODIUM 100MG CAPSULE PO SCH ×2 (11:41→20:48)
[2021-09-13] MEDS: METOPROLOL TART 50 MG TAB PO SCH ×2 (11:41→20:49)
[2021-09-13] MEDS ORDERED: D5W 1,000 ML IV SCH (13:00)
[2021-09-13] MEDS: lisinopriL 5 MG TAB PO SCH (15:43)
[2021-09-13] MEDS ORDERED: PILL CUTTER 1 EACH XX PRN (18:55)
[2021-09-13] MEDS: ATORVASTATIN 20 MG TAB PO SCH (20:48)
[2021-09-13] MEDS: SERTRALINE HCL 25 MG TABLET PO SCH (20:48)
[2021-09-13] MEDS: ACETAMINOPHEN TAB 650MG DOSE (2X325MG) PO PRN (20:49)
[2021-09-13] MEDS: OLANZapine ORAL DISINTEGRATING TAB 5MG PO SCH (20:54)
[2021-09-13] MEDS ORDERED: OLANZapine ORAL DISINTEGRATING TAB 5MG PO SCH (21:00)
[2021-09-14] MEDS: HEPARIN SOD (PORCINE) 5000UNITS/ML 1ML VIAL/SYRINGE SC SCH ×3 (05:28→20:26)
[2021-09-14] MEDS: ACETAMINOPHEN TAB 650MG DOSE (2X325MG) PO PRN ×2 (06:17→20:25)
[2021-09-14 08:28] VITALS: BP 117/56
[2021-09-14] MEDS: METOPROLOL TART 50 MG TAB PO SCH ×2 (08:51→19:58)
[2021-09-14] MEDS: CLOPIDOGREL 75 MG TAB PO SCH (08:51)
[2021-09-14] MEDS: OLANZapine ORAL DISINTEGRATING TAB 5MG PO SCH ×2 (08:51→20:24)
[2021-09-14] MEDS: DOCUSATE SODIUM 100MG CAPSULE PO SCH ×2 (08:51→19:57)
[2021-09-14] MEDS: lisinopriL 5 MG TAB PO SCH (08:52)
[2021-09-14] MEDS: HumaLOG INSULIN (NovoLOG) PER UNIT SC SCH ×4 (09:26→20:01)
[2021-09-14] MEDS ORDERED: ONDANSETRON 4 MG TAB PO ONE (18:30)
[2021-09-14] MEDS: LevoFLOXacin 750 MG TABLET PO SCH (18:52)
[2021-09-14] MEDS: ATORVASTATIN 20 MG TAB PO SCH (19:57)
[2021-09-14] MEDS: SERTRALINE HCL 25 MG TABLET PO SCH (19:58)
[2021-09-14 20:00] VITALS: BP 126/58
[2021-09-15] VITALS: BP 113/53
[2021-09-15 04:00] VITALS: BP 115/57
[2021-09-15] MEDS: HEPARIN SOD (PORCINE) 5000UNITS/ML 1ML VIAL/SYRINGE SC SCH ×3 (05:51→22:00)
[2021-09-15] MEDS: HumaLOG INSULIN (NovoLOG) PER UNIT SC SCH ×4 (05:54→21:00)
[2021-09-15 07:36] VITALS: BP 122/65
[2021-09-15] MEDS: DOCUSATE SODIUM 100MG CAPSULE PO SCH ×2 (09:00→20:46)
[2021-09-15] MEDS: CLOPIDOGREL 75 MG TAB PO SCH (09:43)
[2021-09-15] MEDS: lisinopriL 5 MG TAB PO SCH (09:43)
[2021-09-15] MEDS: METOPROLOL TART 50 MG TAB PO SCH ×2 (09:43→20:47)
[2021-09-15 20:00] VITALS: BP 142/65
[2021-09-15] MEDS: SERTRALINE HCL 25 MG TABLET PO SCH (20:46)
[2021-09-15] MEDS: ATORVASTATIN 20 MG TAB PO SCH (20:46)
[2021-09-15] MEDS: OLANZapine ORAL DISINTEGRATING TAB 5MG PO SCH (20:46)
[2021-09-16] MEDS: HEPARIN SOD (PORCINE) 5000UNITS/ML 1ML VIAL/SYRINGE SC SCH ×3 (06:19→21:05)
[2021-09-16 08:15] VITALS: BP 127/56
[2021-09-16] MEDS: lisinopriL 5 MG TAB PO SCH (09:00)
[2021-09-16] MEDS: METOPROLOL TART 50 MG TAB PO SCH ×2 (09:00→21:04)
[2021-09-16] MEDS: DOCUSATE SODIUM 100MG CAPSULE PO SCH ×2 (09:29→21:04)
[2021-09-16] MEDS: CLOPIDOGREL 75 MG TAB PO SCH (09:29)
[2021-09-16] MEDS: HumaLOG INSULIN (NovoLOG) PER UNIT SC SCH ×4 (09:29→21:00)
[2021-09-16 12:50] VITALS: BP 118/55
[2021-09-16] MEDS: LevoFLOXacin 750 MG TABLET PO SCH (17:17)
[2021-09-16] MEDS: SERTRALINE HCL 25 MG TABLET PO SCH (21:04)
[2021-09-16] MEDS: OLANZapine ORAL DISINTEGRATING TAB 5MG PO SCH (21:04)
[2021-09-16] MEDS: ATORVASTATIN 20 MG TAB PO SCH (21:04)
[2021-09-17 05:48] LABS: CREATININE FOR GFR 1.27 MG/DL (0.55-1.30); GLOMERULAR FILTRATION RATE 43.3 (>39); MAGNESIUM LEVEL 1.6 MG/DL (1.8-2.4); PHOSPHORUS LEVEL 2.7 MG/DL (2.5-4.9); POTASSIUM SERUM 4.4 MEQ/L (3.5-5.1)
[2021-09-17] MEDS: HEPARIN SOD (PORCINE) 5000UNITS/ML 1ML VIAL/SYRINGE SC SCH (06:00)
[2021-09-17 08:26] VITALS: BP 129/60
[2021-09-17] MEDS ORDERED: MAGNESIUM OXIDE 400MG TAB (MAG-OX) PO ONE (09:10)
[2021-09-17] MEDS ORDERED: LISI5TAB11 PO (09:17)
[2021-09-17] MEDS ORDERED: SERT25TA21 PO (09:17)
[2021-09-17] MEDS ORDERED: OLAN5ZYD PO (09:17)
[2021-09-17] MEDS ORDERED: ATOR1TAB21 PO (09:17)
[2021-09-17] MEDS: DOCUSATE SODIUM 100MG CAPSULE PO SCH (09:20)
[2021-09-17] MEDS: CLOPIDOGREL 75 MG TAB PO SCH (09:20)
[2021-09-17] MEDS: HumaLOG INSULIN (NovoLOG) PER UNIT SC SCH ×2 (09:20→12:00)
[2021-09-17 09:22] VITALS: BP 129/60
[2021-09-17] MEDS: METOPROLOL TART 50 MG TAB PO SCH (09:22)
[2021-09-17] MEDS: lisinopriL 5 MG TAB PO SCH (09:23)
== END 2021-09-17 13:39 | DRG 871 ==
LOC: M ED 16:28 → M ED INP 22:35 → ENRESERV 09-09 00:05 → M PCU 09-09 00:46
PROVIDERS: ADMIT Family Medicine; ATTEND Internal Medicine Nephrology
DX: A41.9 Sepsis, unspecified organism (principal); G93.41 Metabolic encephalopathy; J18.9 Pneumonia, unspecified organism; I63.9 Cerebral infarction, unspecified; I67.83 Posterior reversible encephalopathy syndrome; N39.0 Urinary tract infection, site not specified; I67.4 Hypertensive encephalopathy; F33.9 Major depressive disorder, recurrent, unspecified; E11.9 Type 2 diabetes mellitus without complications; I10 Essential (primary) hypertension; E66.01 Morbid (severe) obesity due to excess calories; Z68.31 Body mass index [BMI] 31.0-31.9, adult; F41.1 Generalized anxiety disorder; F03.90 Unspecified dementia, unspecified severity, without behavioral disturbance, psychotic disturbance, mood disturbance, and anxiety; I16.0 Hypertensive urgency; F32.9 Major depressive disorder, single episode, unspecified; E78.5 Hyperlipidemia, unspecified; Z79.899 Other long term (current) drug therapy; Z88.0 Allergy status to penicillin; Z88.6 Allergy status to analgesic agent; Z91.018 Allergy to other foods

== ENCOUNTER 2021-09-30 15:37 | Emergency (ER) | payer MEDICARE, BC ==
[~2021-09-30] VITALS: Ht 157.5 cm; Wt 85.0 kg
[~2021-09-30 15:37] MED LIST changes: +ATOR1TAB21 PO; +DULO1CAP4 PO; +ERGO500029 PO; +LISI5TAB11 PO; +METO50TA7 PO; +OLAN5ZYD PO; +SERT25TA21 PO
[2021-09-30 18:18] LABS: HEMATOCRIT 33.5 % (36.0-47.0); HEMOGLOBIN 10.6 g/dl (12.0-15.5); MEAN CORPUSCULAR HEMOGLOBIN 31.9 pg (27.0-33.0); MEAN CORPUSCULAR HGB CONC 31.6 g/dl (32.0-36.5); MEAN CORPUSCULAR VOLUME 100.9 fl (80.0-96.0); PLATELET COUNT, AUTOMATED 294 10^3/uL (150-450); RED BLOOD COUNT 3.32 10^6/uL (4.00-5.40); WHITE BLOOD COUNT 8.1 10^3/uL (4.0-10.0)
[2021-09-30 18:53] LABS: ACETAMINOPHEN LEVEL < 2.0 UG/ML (10.0-30.0); ALBUMIN 3.4 GM/DL (3.2-5.2); ALT/SGPT 21 U/L (12-78); BILIRUBIN,DIRECT 0.3 MG/DL (0.0-0.2); BILIRUBIN,TOTAL 0.7 MG/DL (0.2-1.0); BLOOD UREA NITROGEN 31 MG/DL (7-18); CALCIUM LEVEL 8.7 MG/DL (8.8-10.2); CARBON DIOXIDE LEVEL 26 MEQ/L (21-32); CHLORIDE LEVEL 109 MEQ/L (98-107); CREATININE FOR GFR 1.32 MG/DL (0.55-1.30); ETHYL ALCOHOL (ETHANOL) 0.003 % (0.000-0.010); GLOMERULAR FILTRATION RATE 41.4 (>39); GLUCOSE, FASTING 101 MG/DL (70-100); POTASSIUM SERUM 4.2 MEQ/L (3.5-5.1); SALICYLATE LEVEL < 1.7 MG/DL (5.0-30.0); SODIUM LEVEL 142 MEQ/L (136-145); TOTAL PROTEIN 6.6 GM/DL (6.4-8.2)
[2021-09-30 20:57] VITALS: BP 175/73
== END 2021-09-30 21:45 | disposition home or self-care (01) ==
LOC: M ED 15:37
DX: R45.851 Suicidal ideations (principal); R44.1 Visual hallucinations; E11.9 Type 2 diabetes mellitus without complications; F41.9 Anxiety disorder, unspecified; I10 Essential (primary) hypertension; Z88.0 Allergy status to penicillin; Z88.6 Allergy status to analgesic agent; Z91.02 Food additives allergy status; Z79.4 Long term (current) use of insulin; Z79.899 Other long term (current) drug therapy

== ENCOUNTER 2025-04-26 12:26 | Emergency (ER) | payer MEDICARE ==
[~2025-04-26] VITALS: Ht 152.4 cm; Wt 102.5 kg
[2025-04-26 12:40] VITALS: TEMP 97.3
[2025-04-26 14:16] LABS: BASO # 0.0 10^3/uL (0.0-0.2); BASO % 0.5 % (0.0-1.0); EOS # 0.1 10^3/uL (0.0-0.5); EOS % 1.2 % (0.0-3.0); LYMPH # 1.1 10^3/uL (1.5-5.0); LYMPH % 28.0 % (24.0-44.0); MONO # 0.6 10^3/uL (0.0-0.8); MONO % 15.5 % (2.0-8.0); NEUTROPHILS # 2.2 10^3/uL (1.5-8.5); NEUTROPHILS % 54.3 % (36.0-66.0); PLATELET COUNT, AUTOMATED 186 10^3/uL (150-450)
[2025-04-26 14:33] LABS: ALT/SGPT 18.0 U/L (7.0-40); AST/SGOT 30.0 U/L (<34); CALCIUM LEVEL 8.8 MG/DL (8.3-10.6); CARBON DIOXIDE LEVEL 28.0 MMOL/L (20-31); CHLORIDE LEVEL 104.0 MMOL/L (98-107); CREATININE FOR GFR 1.23 MG/DL (0.55-1.30); GLOMERULAR FILTRATION RATE 43.9 (>32); POTASSIUM SERUM 3.7 MMOL/L (3.5-5.1); SODIUM LEVEL 146.0 MMOL/L (136-145)
[2025-04-26 14:37] LABS: KETONE, URINE AUTO RFX NEGATIVE (NEGATIVE); NITRITE, URINE AUTO RFX NEGATIVE (NEGATIVE); RBC, URINE AUTO RFX 0 /HPF (0-3); SQUAM EPITHELIAL CELL UR AURFX 13 /HPF (0-6)
[2025-04-26 14:38] LABS: LEUKOCYTE ESTERASE UR AUTO RFX 3+ (NEGATIVE); WBC, URINE AUTO RFX TNTC /HPF (0-3)
[2025-04-26] MEDS: ONDANSETRON 4MG ORAL DISINTEGRATING TAB PO ONE (15:12)
[2025-04-26] MEDS ORDERED: NIRM1TAB13 PO (15:15)
[2025-04-26 15:45] VITALS: BP 191/85; O2SAT 91
[2025-04-29] MEDS ORDERED: CEPH500C PO (13:26)
== END 2025-04-26 16:28 | disposition home or self-care (01) ==
LOC: EDBD 12:26 → M ED 12:26
DX: U07.1 COVID-19 (principal); R00.1 Bradycardia, unspecified; E11.9 Type 2 diabetes mellitus without complications; I10 Essential (primary) hypertension; E78.5 Hyperlipidemia, unspecified; F32.A Depression, unspecified; F41.9 Anxiety disorder, unspecified; Z88.0 Allergy status to penicillin; Z88.1 Allergy status to other antibiotic agents; Z88.6 Allergy status to analgesic agent; Z91.018 Allergy to other foods; Z79.02 Long term (current) use of antithrombotics/antiplatelets; Z79.1 Long term (current) use of non-steroidal anti-inflammatories (NSAID); Z79.899 Other long term (current) drug therapy

== ENCOUNTER → 2025-05-11 | Outpatient (CLI) | payer MEDICARE ==
[~2025-05-11] MED LIST changes: +CEPH500C PO; +NIRM1TAB PO
== END ==
LOC: M WHC 14:05
PROVIDERS: ATTEND Family Medicine
DX: Z12.31 Encounter for screening mammogram for malignant neoplasm of breast (principal)

== ENCOUNTER → 2025-05-11 | Outpatient (CLI) | payer MEDICARE ==
[2025-05-11 15:51] LABS: BASO # 0.0 10^3/uL (0.0-0.2); BASO % 0.3 % (0.0-1.0); EOS # 0.1 10^3/uL (0.0-0.5); EOS % 1.3 % (0.0-3.0); LYMPH # 1.8 10^3/uL (1.5-5.0); LYMPH % 18.3 % (24.0-44.0); MONO # 0.9 10^3/uL (0.0-0.8); MONO % 8.4 % (2.0-8.0); NEUTROPHILS # 7.2 10^3/uL (1.5-8.5); NEUTROPHILS % 71.3 % (36.0-66.0); PLATELET COUNT, AUTOMATED 308 10^3/uL (150-450)
[2025-05-11 15:59] LABS: ALT/SGPT 14 U/L (7.0-40); AST/SGOT 18 U/L (<34); CALCIUM LEVEL 8.9 MG/DL (8.3-10.6); CARBON DIOXIDE LEVEL 26 MMOL/L (20-31); CHLORIDE LEVEL 106 MMOL/L (98-107); CHOLESTEROL LEVEL 90 MG/DL (<200); CHOLESTEROL RISK RATIO 2.29 (<5); CREATININE FOR GFR 1.14 MG/DL (0.55-1.30); GLOMERULAR FILTRATION RATE 48.1 (>32); LDL CHOLESTEROL 23.4 MG/DL (<100); MAGNESIUM LEVEL 1.6 MG/DL (1.8-2.4); NON-HDL-C 50.8 MG/DL; POTASSIUM SERUM 3.9 MMOL/L (3.5-5.1); SODIUM LEVEL 139 MMOL/L (136-145); TRIGLYCERIDES LEVEL 137 MG/DL (<150)
[2025-05-11 16:00] LABS: FREE T4 1.19 NG/DL (0.89-1.76)
[2025-05-11 16:10] LABS: CPK CREATINE PHOSPHOKINASE 28 U/L (34-145); VITAMIN B12 LEVEL > 2000 PG/ML (211-911)
== END ==
LOC: M PLALAB 12:53
PROVIDERS: ATTEND Family Medicine
DX: R06.02 Shortness of breath (principal); R53.83 Other fatigue; E78.2 Mixed hyperlipidemia; I10 Essential (primary) hypertension

== ENCOUNTER 2025-05-15 13:54 | Inpatient (IN) | payer MEDICARE, BC ==
[~2025-05-15] VITALS: Ht 152.4 cm; Wt 103.9 kg
[2025-05-15 16:04] LABS: BASO # 0.0 10^3/uL (0.0-0.2); BASO % 0.2 % (0.0-1.0); EOS # 0.2 10^3/uL (0.0-0.5); EOS % 2.1 % (0.0-3.0); LYMPH # 1.2 10^3/uL (1.5-5.0); LYMPH % 13.8 % (24.0-44.0); MONO # 0.7 10^3/uL (0.0-0.8); MONO % 7.3 % (2.0-8.0); NEUTROPHILS # 6.8 10^3/uL (1.5-8.5); NEUTROPHILS % 76.3 % (36.0-66.0); PLATELET COUNT, AUTOMATED 262 10^3/uL (150-450)
[2025-05-15 16:25] LABS: ALT/SGPT 12.0 U/L (7.0-40); AST/SGOT 20.0 U/L (<34); CALCIUM LEVEL 8.4 MG/DL (8.3-10.6); CARBON DIOXIDE LEVEL 26.0 MMOL/L (20-31); CHLORIDE LEVEL 106.0 MMOL/L (98-107); CREATININE FOR GFR 1.02 MG/DL (0.55-1.30); GLOMERULAR FILTRATION RATE 54.9 (>32); POTASSIUM SERUM 3.6 MMOL/L (3.5-5.1); SODIUM LEVEL 144.0 MMOL/L (136-145)
[2025-05-15] MEDS ORDERED: ATOR80TA59 PO (18:02)
[2025-05-15] MEDS ORDERED: SERT50TA29 PO (18:04)
[2025-05-15] MEDS ORDERED: FAMO40TA3 PO (18:06)
[2025-05-15] MEDS ORDERED: OCUVTAB4 PO (18:06)
[2025-05-15] MEDS ORDERED: VITA500T41 PO (18:06)
[2025-05-15] MEDS ORDERED: HOME MED LIST COMPLETE! XX SCH (18:10)
[2025-05-15] MEDS: MOXIFLOXACIN HCL 400 MG in IV 1 EA IV ONE (19:21)
[2025-05-15] MEDS: IPRATROPIUM 0.5 MG/ALBUTEROL 2.5 MG INH SOL UD 3 ML NEB SCH (21:00)
[2025-05-15] MEDS: ATORVASTATIN 20 MG TAB PO SCH (21:55)
[2025-05-16] MEDS ORDERED: DOXYCYCLINE HYCLATE 100 MG in DEXTROSE 5% (D5W) MINI-BAG PLU 100 ML IV SCH (09:00)
[2025-05-16 09:14] LABS: PLATELET COUNT, AUTOMATED 269 10^3/uL (150-450)
[2025-05-16] MEDS ORDERED: IPRATROPIUM 0.5 MG/ALBUTEROL 2.5 MG INH SOL UD 3 ML NEB PRN (09:15)
[2025-05-16 09:39] LABS: CALCIUM LEVEL 8.6 MG/DL (8.3-10.6); CARBON DIOXIDE LEVEL 27.0 MMOL/L (20-31); CHLORIDE LEVEL 108.0 MMOL/L (98-107); CREATININE FOR GFR 1.03 MG/DL (0.55-1.30); GLOMERULAR FILTRATION RATE 54.3 (>32); POTASSIUM SERUM 3.7 MMOL/L (3.5-5.1); SODIUM LEVEL 145.0 MMOL/L (136-145)
[2025-05-16] MEDS: FAMOTIDINE 20 MG TAB PO SCH (09:43)
[2025-05-16] MEDS: SERTRALINE HCL 50 MG TAB PO SCH (09:43)
[2025-05-16] MEDS: CLOPIDOGREL 75 MG TAB PO SCH (09:43)
[2025-05-16] MEDS: DOXYCYCLINE HYCLATE 100 MG TABLET PO SCH (09:43)
[2025-05-16] MEDS: CYANOCOBALAMIN 500 MCG TAB PO SCH (09:43)
[2025-05-16] MEDS: ENOXAPARIN 40 MG/0.4 ML SYRINGE (J1650 PER 10MG) SC SCH (09:44)
[2025-05-16] MEDS: cefTRIAXone SOD 2 GM in DEXTROSE 5% (D5W) ADV/MINI-BAG 50 ML IV SCH (10:10)
[2025-05-16] MEDS: SYMBICORT 80/4.5MCG INHALER 6GM INH SCH (11:19)
[2025-05-16] MEDS: ALBUTEROL SULFATE 2.5 MG/0.5 ML INH CONCENTRATE NEB SOLN NEB SCH (14:27)
[2025-05-17 08:38] LABS: BASO # 0.0 10^3/uL (0.0-0.2); BASO % 0.4 % (0.0-1.0); EOS # 0.2 10^3/uL (0.0-0.5); EOS % 3.9 % (0.0-3.0); LYMPH # 0.8 10^3/uL (1.5-5.0); LYMPH % 14.3 % (24.0-44.0); MONO # 0.6 10^3/uL (0.0-0.8); MONO % 10.9 % (2.0-8.0); NEUTROPHILS # 3.8 10^3/uL (1.5-8.5); NEUTROPHILS % 70.1 % (36.0-66.0); PLATELET COUNT, AUTOMATED 220 10^3/uL (150-450)
[2025-05-17 09:15] LABS: CALCIUM LEVEL 8.1 MG/DL (8.3-10.6); CARBON DIOXIDE LEVEL 29.0 MMOL/L (20-31); CHLORIDE LEVEL 110.0 MMOL/L (98-107); CREATININE FOR GFR 1.0 MG/DL (0.55-1.30); GLOMERULAR FILTRATION RATE 56.3 (>32); POTASSIUM SERUM 3.6 MMOL/L (3.5-5.1); SODIUM LEVEL 147.0 MMOL/L (136-145)
[2025-05-17] MEDS: FLUZONE HIGH DOSE (65+) 0.5 ML SYRINGE (25-26) IM.IMMUN ONE (11:24)
[2025-05-17] MEDS: PNEUMOC 21-VAL CONJ-DIP CRM/PF 0.5 ML SYRINGE IM.IMMUN ONE (11:26)
[2025-05-17 15:03] VITALS: BP 133/69; TEMP 97.5; O2SAT 97
[2025-05-17] MEDS: amLODIPine 5 MG TAB PO ONE (16:53)
[2025-05-17 19:48] VITALS: O2SAT 90
[2025-05-17 20:11] VITALS: BP 163/82; TEMP 97.3; O2SAT 92
[2025-05-17] MEDS: NYSTATIN 100,000 UNITS/GM TOPICAL PWD 15 GM TOP SCH (20:15)
[2025-05-17] MEDS: PANTOPRAZOLE 40MG TAB PO SCH (21:26)
[2025-05-17] MEDS: dexAMETHasone 4 MG/ML 1 ML VIAL IV SCH (21:26)
[2025-05-18 04:29] VITALS: BP 112/50; TEMP 97.5; O2SAT 91
[2025-05-18 06:14] LABS: BASO # 0.0 10^3/uL (0.0-0.2); BASO % 0.0 % (0.0-1.0); EOS # 0.0 10^3/uL (0.0-0.5); EOS % 0.0 % (0.0-3.0); LYMPH # 0.4 10^3/uL (1.5-5.0); LYMPH % 8.9 % (24.0-44.0); MONO # 0.0 10^3/uL (0.0-0.8); MONO % 0.9 % (2.0-8.0); NEUTROPHILS # 3.8 10^3/uL (1.5-8.5); NEUTROPHILS % 89.3 % (36.0-66.0); PLATELET COUNT, AUTOMATED 227 10^3/uL (150-450)
[2025-05-18 06:47] LABS: CALCIUM LEVEL 8.4 MG/DL (8.3-10.6); CARBON DIOXIDE LEVEL 27.0 MMOL/L (20-31); CHLORIDE LEVEL 108.0 MMOL/L (98-107); CREATININE FOR GFR 0.9 MG/DL (0.55-1.30); GLOMERULAR FILTRATION RATE 63.8 (>32); POTASSIUM SERUM 3.9 MMOL/L (3.5-5.1); SODIUM LEVEL 145.0 MMOL/L (136-145)
[2025-05-18] MEDS: GLYCOPYRROLATE INJ 0.2 MG/ML 2 ML VIAL NEB SCH (07:09)
[2025-05-18 11:43] VITALS: BP 119/57; TEMP 97.3; O2SAT 95
[2025-05-18 21:36] VITALS: BP 122/55; TEMP 97.2; O2SAT 94
[2025-05-18 23:00] VITALS: O2SAT 96
[2025-05-18 23:05] VITALS: O2SAT 93
[2025-05-19 04:00] VITALS: BP 135/66; TEMP 97.3; O2SAT 95
[2025-05-19 06:26] LABS: BASO # 0.0 10^3/uL (0.0-0.2); BASO % 0.2 % (0.0-1.0); EOS # 0.0 10^3/uL (0.0-0.5); EOS % 0.0 % (0.0-3.0); LYMPH # 0.4 10^3/uL (1.5-5.0); LYMPH % 7.9 % (24.0-44.0); MONO # 0.2 10^3/uL (0.0-0.8); MONO % 3.5 % (2.0-8.0); NEUTROPHILS # 4.8 10^3/uL (1.5-8.5); NEUTROPHILS % 87.7 % (36.0-66.0); PLATELET COUNT, AUTOMATED 228 10^3/uL (150-450)
[2025-05-19 07:03] LABS: CALCIUM LEVEL 8.5 MG/DL (8.3-10.6); CARBON DIOXIDE LEVEL 24.0 MMOL/L (20-31); CHLORIDE LEVEL 107.0 MMOL/L (98-107); CREATININE FOR GFR 1.06 MG/DL (0.55-1.30); GLOMERULAR FILTRATION RATE 52.5 (>32); POTASSIUM SERUM 3.7 MMOL/L (3.5-5.1); SODIUM LEVEL 139.0 MMOL/L (136-145)
[2025-05-19 08:00] VITALS: BP 145/71; TEMP 97.5; O2SAT 92
[2025-05-19] MEDS: ACETAMINOPHEN 325 MG TAB PO PRN (10:51)
[2025-05-19 16:18] VITALS: BP 162/70; TEMP 97.2; O2SAT 96
[2025-05-19] MEDS ORDERED: CHLORASEPTIC SPRAY MT PRN (18:55)
[2025-05-19 20:19] VITALS: BP 135/70; TEMP 97.3; O2SAT 95
[2025-05-19] MEDS: CEFDINIR 300 MG CAP PO SCH (20:48)
[2025-05-20 03:57] VITALS: BP 136/70; TEMP 98.1; O2SAT 95
[2025-05-20 07:17] LABS: BASO # 0.0 10^3/uL (0.0-0.2); BASO % 0.1 % (0.0-1.0); EOS # 0.0 10^3/uL (0.0-0.5); EOS % 0.0 % (0.0-3.0); LYMPH # 0.8 10^3/uL (1.5-5.0); LYMPH % 9.4 % (24.0-44.0); MONO # 0.6 10^3/uL (0.0-0.8); MONO % 7.7 % (2.0-8.0); NEUTROPHILS # 6.6 10^3/uL (1.5-8.5); NEUTROPHILS % 81.9 % (36.0-66.0); PLATELET COUNT, AUTOMATED 247 10^3/uL (150-450)
[2025-05-20 07:45] LABS: CALCIUM LEVEL 8.5 MG/DL (8.3-10.6); CARBON DIOXIDE LEVEL 24.0 MMOL/L (20-31); CHLORIDE LEVEL 106.0 MMOL/L (98-107); CREATININE FOR GFR 1.2 MG/DL (0.55-1.30); GLOMERULAR FILTRATION RATE 45.2 (>32); POTASSIUM SERUM 3.8 MMOL/L (3.5-5.1); SODIUM LEVEL 140.0 MMOL/L (136-145)
[2025-05-20] MEDS: dexAMETHasone 4 MG/ML 1 ML VIAL IV SCH (09:20)
[2025-05-20 09:21] VITALS: BP 144/72
[2025-05-20] MEDS ORDERED: PRED10TA2 PO (10:56)
[2025-05-20] MEDS ORDERED: SYMB80INH INH (10:56)
[2025-05-20] MEDS ORDERED: DOXY100T PO (10:56)
[2025-05-20] MEDS ORDERED: VENTAER INH (10:56)
[2025-05-20] MEDS ORDERED: CEFD300CAP PO (10:56)
[2025-05-20 12:05] VITALS: BP 126/64; TEMP 97.2; O2SAT 96
== END 2025-05-20 15:25 | disposition home or self-care (01) | DRG 194 ==
LOC: M ED 13:54 → M ED INP 18:56 → M MSPAV 05-17 15:02
PROVIDERS: ADMIT Student in an Organized Health Care Education/Training Program; ATTEND Internal Medicine Nephrology
DX: J12.9 Viral pneumonia, unspecified (principal); J44.0 Chronic obstructive pulmonary disease with (acute) lower respiratory infection; J96.11 Chronic respiratory failure with hypoxia; I10 Essential (primary) hypertension; E78.5 Hyperlipidemia, unspecified; F32.A Depression, unspecified; J15.9 Unspecified bacterial pneumonia; B96.20 Unspecified Escherichia coli [E. coli] as the cause of diseases classified elsewhere; I25.10 Atherosclerotic heart disease of native coronary artery without angina pectoris; R19.7 Diarrhea, unspecified; Z88.0 Allergy status to penicillin; Z91.018 Allergy to other foods; Z88.6 Allergy status to analgesic agent; Z88.8 Allergy status to other drugs, medicaments and biological substances; Z79.899 Other long term (current) drug therapy; Z66 Do not resuscitate